=== PATIENT | female | born 1940 | race Caucasian/White ===

== ENCOUNTER 2021-02-13 13:22 | Inpatient (IN) | payer MEDICARE, OTHER ==
[~2021-02-13] VITALS: Ht 165.1 cm; Wt 88.2 kg
[2021-02-13 13:26] VITALS: BP 109/47
[2021-02-13] MEDS ORDERED: DEXAMETHASONE2 MG PO (13:36)
[2021-02-13] MEDS ORDERED: BENAZEPRIL20 MG PO (13:37)
[2021-02-13] MEDS ORDERED: CRESTOR5 MG PO (13:37)
[2021-02-13] MEDS ORDERED: PANTOPRAZOLE SO40 MG PO (13:38)
[2021-02-13] MEDS ORDERED: CYCLOBENZAPRINE5 M3 PO (13:38)
[2021-02-13] MEDS ORDERED: VENLAFAXINE37.5 M1 PO (13:39)
[2021-02-13 13:50] LABS: BASO # 0.1 10*3/uL (0.0-0.1); BASO % 0.7 % (0.0-1.0); EOS # 0.1 10*3/uL (0.0-0.4); EOS % 0.9 % (1.0-4.0); HEMATOCRIT 36.7 % (37.0-47.0); LYMPH # 1.9 10*3/uL (1.3-4.4); LYMPH % 15.9 % (27.0-41.0); MEAN CELL VOLUME 97.3 fl (81.0-99.0); MEAN CORPUSCULAR HGB 30.5 pg (27.0-31.0); MEAN CORPUSCULAR HGB CONC 31.3 g/dl (33.0-37.0); MEAN PLATELET VOLUME 9.6 fl (9.6-12.3); MONO # 0.9 10*3/uL (0.1-1.0); MONO % 7.2 % (3.0-9.0); NEUT # 8.7 10*3/uL (2.3-7.9); NEUT % 73.9 % (47.0-73.0); PLATELET COUNT AUTOMATED 273 10*3/uL (130-400); RED BLOOD COUNT 3.77 10*6/uL (4.10-5.10); RED CELL DISTRI WIDTH 14.4 % (0-14.5); WHITE BLOOD COUNT 11.8 10*3/uL (4.8-10.8)
[2021-02-13 14:04] LABS: ALBUMIN 3.2 gm/dl (3.1-4.5); CREATININE 1.34 mg/dL (0.55-1.02); POTASSIUM 3.7 mmol/L (3.5-5.1); TOTAL PROTEIN 6.6 gm/dL (6.4-8.2)
[2021-02-13 15:56] VITALS: BP 112/53
[2021-02-13 15:58] LABS: BILIRUBIN Negative (Negative); BLOOD Negative (Negative); CLARITY Cloudy (Clear); COLOR Yellow (Yellow); GLUCOSE Negative (Negative); KETONE Negative (Negative); LEUKO ESTERASE 3+ (Negative); NITRITE Negative (Negative); PH 6.5 (4.5-8.0); UROBILINOGEN 0.2 E.U./dl (0.0-1.0)
[2021-02-13 16:11] LABS: BACTERIA 2+; RBC 0-2 rbc/hpf (0-2); WBC 41-50 wbc/hpf (0-5)
[2021-02-13 16:49] VITALS: BP 146/62
[2021-02-13 20:10] VITALS: BP 174/66
[2021-02-13 20:40] VITALS: BP 158/66
[2021-02-13 21:06] VITALS: BP 148/66
[2021-02-14] VITALS: BP 139/58
[2021-02-14 06:06] LABS: ALBUMIN 3.1 gm/dl (3.1-4.5); ALKALINE PHOSPHATASE 48 U/L (45-117); BUN 17 mg/dl (7-24); CHLORIDE 114 mmol/L (98-107); CHOLESTEROL 151 mg/dL (<200); CREATININE 0.96 mg/dL (0.55-1.02); FREE T4 1.08 ng/dl (0.76-1.46); LDL CHOLESTEROL 36 mg/dL (9-159); POTASSIUM 3.8 mmol/L (3.5-5.1); SGOT/AST 15 IU/L (3-35); SGPT/ALT 28 U/L (12-78); SODIUM 144 mmol/L (136-145); TOTAL PROTEIN 5.9 gm/dL (6.4-8.2); TRIGLYCERIDES 239 mg/dl (<150)
[2021-02-14 06:26] LABS: BASO # 0.1 10*3/uL (0.0-0.1); BASO % 0.8 % (0.0-1.0); EOS # 0.1 10*3/uL (0.0-0.4); EOS % 1.5 % (1.0-4.0); HEMATOCRIT 33.7 % (37.0-47.0); LYMPH # 1.9 10*3/uL (1.3-4.4); LYMPH % 22.4 % (27.0-41.0); MEAN CORPUSCULAR HGB 30.5 pg (27.0-31.0); MEAN CORPUSCULAR HGB CONC 31.2 g/dl (33.0-37.0); MEAN PLATELET VOLUME 9.6 fl (9.6-12.3); MONO # 0.7 10*3/uL (0.1-1.0); MONO % 7.7 % (3.0-9.0); NEUT # 5.6 10*3/uL (2.3-7.9); PLATELET COUNT AUTOMATED 247 10*3/uL (130-400); RED BLOOD COUNT 3.44 10*6/uL (4.10-5.10); RED CELL DISTRI WIDTH 14.7 % (0-14.5); WHITE BLOOD COUNT 8.6 10*3/uL (4.8-10.8)
[2021-02-14 08:00] VITALS: BP 157/66
[2021-02-14 08:39] LABS: VITAMIN D, 25-HYDROXY 40.9 ng/mL (30-100)
[2021-02-14 12:00] VITALS: BP 154/78
[2021-02-14 16:00] VITALS: BP 157/68
[2021-02-14 20:00] VITALS: BP 166/67
[2021-02-15] VITALS: BP 150/88
[2021-02-15 05:55] LABS: ALBUMIN 3.1 gm/dl (3.1-4.5); BUN 17 mg/dl (7-24); CHLORIDE 110 mmol/L (98-107); POTASSIUM 4.5 mmol/L (3.5-5.1); SODIUM 141 mmol/L (136-145)
[2021-02-15 06:00] LABS: ALKALINE PHOSPHATASE 63 U/L (45-117); CREATININE 0.92 mg/dL (0.55-1.02); SGOT/AST 15 IU/L (3-35); SGPT/ALT 27 U/L (12-78); TOTAL PROTEIN 6.2 gm/dL (6.4-8.2)
[2021-02-15 06:21] LABS: BASO % 0.3 % (0.0-1.0); EOS % 0.1 % (1.0-4.0); HEMATOCRIT 35.9 % (37.0-47.0); LYMPH # 1.1 10*3/uL (1.3-4.4); LYMPH % 10.6 % (27.0-41.0); MEAN CELL VOLUME 99.7 fl (81.0-99.0); MEAN CORPUSCULAR HGB 30.3 pg (27.0-31.0); MEAN CORPUSCULAR HGB CONC 30.4 g/dl (33.0-37.0); MEAN PLATELET VOLUME 9.8 fl (9.6-12.3); MONO # 0.8 10*3/uL (0.1-1.0); MONO % 7.3 % (3.0-9.0); NEUT # 8.6 10*3/uL (2.3-7.9); NEUT % 80.7 % (47.0-73.0); PLATELET COUNT AUTOMATED 248 10*3/uL (130-400); RED CELL DISTRI WIDTH 14.2 % (0-14.5); WHITE BLOOD COUNT 10.7 10*3/uL (4.8-10.8)
[2021-02-15 08:00] VITALS: BP 165/83
[2021-02-15 12:00] VITALS: BP 152/79
[2021-02-15 16:00] VITALS: BP 174/78
[2021-02-15 20:00] VITALS: BP 163/81
[2021-02-16] VITALS: BP 175/80
[2021-02-16 06:29] LABS: BASO % 0.2 % (0.0-1.0); HEMATOCRIT 33.6 % (37.0-47.0); MEAN CELL VOLUME 97.4 fl (81.0-99.0); MEAN CORPUSCULAR HGB CONC 31.8 g/dl (33.0-37.0); MEAN PLATELET VOLUME 9.9 fl (9.6-12.3); MONO # 0.8 10*3/uL (0.1-1.0); MONO % 6.1 % (3.0-9.0); NEUT # 10.8 10*3/uL (2.3-7.9); NEUT % 84.7 % (47.0-73.0); PLATELET COUNT AUTOMATED 270 10*3/uL (130-400); RED BLOOD COUNT 3.45 10*6/uL (4.10-5.10); RED CELL DISTRI WIDTH 14.6 % (0-14.5); WHITE BLOOD COUNT 12.8 10*3/uL (4.8-10.8)
[2021-02-16 06:30] LABS: BUN 22 mg/dl (7-24); CHLORIDE 106 mmol/L (98-107); CREATININE 0.81 mg/dL (0.55-1.02); POTASSIUM 4.6 mmol/L (3.5-5.1); SODIUM 139 mmol/L (136-145)
[2021-02-16 08:00] VITALS: BP 191/90
[2021-02-16 11:00] VITALS: BP 158/84
== END 2021-02-16 12:26 | disposition home health service (06) | DRG 640 ==
LOC: ED 13:22 → 5E 19:39 → EDHOLD 19:39 → 5E 20:39
PROVIDERS: Emergency Medicine; Internal Medicine; ADMIT Student in an Organized Health Care Education/Training Program; ATTEND Student in an Organized Health Care Education/Training Program
DX: E86.0 Dehydration (principal); N17.0 Acute kidney failure with tubular necrosis; N39.0 Urinary tract infection, site not specified; R55 Syncope and collapse; M54.2 Cervicalgia; R19.7 Diarrhea, unspecified; D72.829 Elevated white blood cell count, unspecified; D64.9 Anemia, unspecified; R73.9 Hyperglycemia, unspecified; R26.81 Unsteadiness on feet; N18.32 Chronic kidney disease, stage 3b; I12.9 Hypertensive chronic kidney disease with stage 1 through stage 4 chronic kidney disease, or unspecified chronic kidney disease; E78.5 Hyperlipidemia, unspecified; K21.9 Gastro-esophageal reflux disease without esophagitis; B96.20 Unspecified Escherichia coli [E. coli] as the cause of diseases classified elsewhere; B96.4 Proteus (mirabilis) (morganii) as the cause of diseases classified elsewhere; Z90.710 Acquired absence of both cervix and uterus; Z95.5 Presence of coronary angioplasty implant and graft; Z82.49 Family history of ischemic heart disease and other diseases of the circulatory system; Z79.899 Other long term (current) drug therapy

== ENCOUNTER 2021-04-06 13:12 | Inpatient (IN) | payer MEDICARE, OTHER ==
[~2021-04-06] VITALS: Ht 165.1 cm; Wt 91.3 kg
[~2021-04-06 13:12] MED LIST: BENAZEPRIL20 MG PO; CRESTOR5 MG PO; CYCLOBENZAPRINE5 M3 PO; DEXAMETHASONE2 MG PO; PANTOPRAZOLE SO40 MG PO; VENLAFAXINE37.5 M1 PO
[2021-04-06 13:25] VITALS: BP 143/77
[2021-04-06 14:51] LABS: ACT PARTIAL THROMBO TIME 20.1 SECONDS (20.0-32.1); ALBUMIN 3.3 gm/dl (3.1-4.5); ALKALINE PHOSPHATASE 54 U/L (45-117); BUN 32 mg/dl (7-24); CHLORIDE 104 mmol/L (98-107); CPK 32 U/L (26-192); CREATININE 1.39 mg/dL (0.55-1.02); INTERNATIONAL NORM RATIO 0.9 (2.0-3.5); LIPASE 137 U/L (73-393); POTASSIUM 4.6 mmol/L (3.5-5.1); SGOT/AST 21 IU/L (3-35); SGPT/ALT 30 U/L (12-78); SODIUM 136 mmol/L (136-145); TOTAL PROTEIN 6.9 gm/dL (6.4-8.2)
[2021-04-06 14:53] LABS: TROPONIN I < 0.015 ng/ml (<0.045)
[2021-04-06 15:28] LABS: HEMATOCRIT 42.8 % (37.0-47.0); MEAN CELL VOLUME 108.1 fl (81.0-99.0); MEAN CORPUSCULAR HGB 31.1 pg (27.0-31.0); MEAN CORPUSCULAR HGB CONC 28.7 g/dl (33.0-37.0); MEAN PLATELET VOLUME 9.7 fl (9.6-12.3); PLATELET COUNT AUTOMATED 198 10*3/uL (130-400); RED BLOOD COUNT 3.96 10*6/uL (4.10-5.10); RED CELL DISTRI WIDTH 14.3 % (0-14.5); WHITE BLOOD COUNT 16.5 10*3/uL (4.8-10.8)
[2021-04-06 16:02] LABS: PLATELET SUFFICIENCY NORMAL (NORMAL); TOTAL CELLS COUNTED 100 #CELLS
[2021-04-06 16:03] LABS: MICROCYTOSIS SLIGHT
[2021-04-07] VITALS: BP 126/54
[2021-04-07 00:36] LABS: BILIRUBIN Negative (Negative); BLOOD Negative (Negative); CLARITY Clear (Clear); COLOR Yellow (Yellow); GLUCOSE Negative (Negative); KETONE Negative (Negative); LEUKO ESTERASE Negative (Negative); NITRITE Negative (Negative); PH 5.5 (4.5-8.0); UROBILINOGEN 0.2 E.U./dl (0.0-1.0)
[2021-04-07 00:50] LABS: BACTERIA 1+
[2021-04-07 04:39] VITALS: BP 124/78
[2021-04-07 07:21] LABS: BASO % 0.3 % (0.0-1.0); EOS % 0.2 % (1.0-4.0); HEMATOCRIT 35.7 % (37.0-47.0); LYMPH # 1.4 10*3/uL (1.3-4.4); MEAN CORPUSCULAR HGB 31.1 pg (27.0-31.0); MEAN CORPUSCULAR HGB CONC 30.5 g/dl (33.0-37.0); MEAN PLATELET VOLUME 10.1 fl (9.6-12.3); MONO # 0.9 10*3/uL (0.1-1.0); MONO % 7.9 % (3.0-9.0); NEUT # 8.8 10*3/uL (2.3-7.9); PLATELET COUNT AUTOMATED 215 10*3/uL (130-400); RED CELL DISTRI WIDTH 14.5 % (0-14.5); WHITE BLOOD COUNT 11.3 10*3/uL (4.8-10.8)
[2021-04-07 07:28] LABS: POTASSIUM 4.7 mmol/L (3.5-5.1)
[2021-04-07] MEDS ORDERED: PREGABALIN100 MG PO (07:37)
[2021-04-07 07:56] LABS: CREATININE 1.48 mg/dL (0.55-1.02); FREE T4 0.83 ng/dl (0.76-1.46); THYROID STIM HORMONE (HS) 0.754 uIU/ml (0.358-4.75); TOTAL PROTEIN 6.3 gm/dL (6.4-8.2)
[2021-04-07 08:00] VITALS: BP 102/47; BP 128/49
[2021-04-07 12:00] VITALS: BP 102/47
[2021-04-07 19:50] VITALS: BP 154/66
[2021-04-07 20:00] VITALS: BP 154/66
[2021-04-08] VITALS: BP 143/72
[2021-04-08 07:15] LABS: BASO % 0.3 % (0.0-1.0); EOS % 0.2 % (1.0-4.0); HEMATOCRIT 36.4 % (37.0-47.0); LYMPH # 1.2 10*3/uL (1.3-4.4); LYMPH % 10.3 % (27.0-41.0); MEAN CELL VOLUME 100.3 fl (81.0-99.0); MEAN CORPUSCULAR HGB 30.6 pg (27.0-31.0); MEAN CORPUSCULAR HGB CONC 30.5 g/dl (33.0-37.0); MEAN PLATELET VOLUME 9.7 fl (9.6-12.3); MONO # 0.8 10*3/uL (0.1-1.0); MONO % 7.2 % (3.0-9.0); NEUT % 80.1 % (47.0-73.0); PLATELET COUNT AUTOMATED 227 10*3/uL (130-400); RED BLOOD COUNT 3.63 10*6/uL (4.10-5.10); RED CELL DISTRI WIDTH 14.6 % (0-14.5); WHITE BLOOD COUNT 11.2 10*3/uL (4.8-10.8)
[2021-04-08 07:29] LABS: CREATININE 1.36 mg/dL (0.55-1.02)
[2021-04-08 08:00] VITALS: BP 191/88
[2021-04-08 12:00] VITALS: BP 131/70
[2021-04-08 16:00] VITALS: BP 132/71; BP 161/60
[2021-04-08 20:00] VITALS: BP 120/60
[2021-04-09] VITALS: BP 160/74
[2021-04-09 07:12] LABS: CREATININE 1.18 mg/dL (0.55-1.02); POTASSIUM 4.8 mmol/L (3.5-5.1)
[2021-04-09 08:00] VITALS: BP 131/73
[2021-04-09 12:00] VITALS: BP 116/69
[2021-04-09] MEDS ORDERED: HYDROCODONE-AC1 EAC1 PO (12:01)
== END 2021-04-09 16:25 | DRG 552 ==
LOC: ED 13:12 → EDHOLD 18:24 → 4E 18:24 → EDHOLD 22:31 → 4E 04-07 19:02
PROVIDERS: Emergency Medicine; Internal Medicine; ADMIT Family Medicine; ATTEND Family Medicine
DX: M54.6 Pain in thoracic spine (principal); E86.0 Dehydration; Z20.822 Contact with and (suspected) exposure to COVID-19; R26.2 Difficulty in walking, not elsewhere classified; R73.9 Hyperglycemia, unspecified; E83.41 Hypermagnesemia; N18.30 Chronic kidney disease, stage 3 unspecified; K21.9 Gastro-esophageal reflux disease without esophagitis; I25.2 Old myocardial infarction; I12.9 Hypertensive chronic kidney disease with stage 1 through stage 4 chronic kidney disease, or unspecified chronic kidney disease; Z90.49 Acquired absence of other specified parts of digestive tract; Z95.5 Presence of coronary angioplasty implant and graft; Z90.710 Acquired absence of both cervix and uterus; Z82.49 Family history of ischemic heart disease and other diseases of the circulatory system; Z79.899 Other long term (current) drug therapy; Z68.33 Body mass index [BMI] 33.0-33.9, adult

== ENCOUNTER 2021-06-03 09:31 | Emergency (ER) | payer MEDICARE, OTHER ==
[~2021-06-03 09:31] MED LIST changes: +HYDROCODONE-AC1 EAC1 PO; +PREGABALIN100 MG PO
[2021-06-03 10:00] LABS: BILIRUBIN Negative (Negative); BLOOD Negative (Negative); CLARITY Clear (Clear); COLOR Yellow (Yellow); GLUCOSE Negative (Negative); KETONE Negative (Negative); LEUKO ESTERASE Negative (Negative); NITRITE Negative (Negative); UROBILINOGEN 0.2 E.U./dl (0.0-1.0)
[2021-06-03 10:13] LABS: BASO # 0.1 10*3/uL (0.0-0.1); BASO % 0.3 % (0.0-1.0); EOS % 0.1 % (1.0-4.0); HEMATOCRIT 36.5 % (37.0-47.0); LYMPH # 0.7 10*3/uL (1.3-4.4); LYMPH % 4.3 % (27.0-41.0); MEAN CELL VOLUME 97.9 fl (81.0-99.0); MEAN CORPUSCULAR HGB CONC 30.7 g/dl (33.0-37.0); MEAN PLATELET VOLUME 9.6 fl (9.6-12.3); MONO # 0.8 10*3/uL (0.1-1.0); MONO % 4.5 % (3.0-9.0); NEUT # 15.6 10*3/uL (2.3-7.9); NEUT % 89.5 % (47.0-73.0); PLATELET COUNT AUTOMATED 283 10*3/uL (130-400); RED BLOOD COUNT 3.73 10*6/uL (4.10-5.10); RED CELL DISTRI WIDTH 14.6 % (0-14.5); WHITE BLOOD COUNT 17.4 10*3/uL (4.8-10.8)
[2021-06-03 10:23] LABS: ACT PARTIAL THROMBO TIME 28.5 SECONDS (20.0-32.1)
[2021-06-03 10:24] LABS: RBC 0-2 rbc/hpf (0-2)
[2021-06-03 10:25] LABS: ALBUMIN 2.7 gm/dl (3.1-4.5); CREATININE 1.29 mg/dL (0.55-1.02); POTASSIUM 3.8 mmol/L (3.5-5.1); TOTAL PROTEIN 6.5 gm/dL (6.4-8.2)
[2021-06-03 11:58] LABS: URINE AMPHETAMINES < 1000 (1000ng/ml); URINE BARBITURATES < 200 (200ng/ml); URINE BENZODIAZEPINES < 200 (200ng/ml); URINE CANNABINOIDS (THC) < 50 (50ng/ml); URINE COCAINE < 300 (300ng/ml); URINE METHADONE < 300 (300ng/ml); URINE OPIATES > 300 (300ng/ml); URINE PHENCYCLIDINE < 25 (25ng/ml)
== END 2021-06-03 13:28 | disposition home or self-care (01) ==
LOC: ED 09:31
PROVIDERS: Emergency Medicine
DX: F32.9 Major depressive disorder, single episode, unspecified (principal); R41.0 Disorientation, unspecified; K21.9 Gastro-esophageal reflux disease without esophagitis; I25.2 Old myocardial infarction; I12.9 Hypertensive chronic kidney disease with stage 1 through stage 4 chronic kidney disease, or unspecified chronic kidney disease; N18.9 Chronic kidney disease, unspecified; F17.200 Nicotine dependence, unspecified, uncomplicated; Z91.030 Bee allergy status; Z79.899 Other long term (current) drug therapy

== ENCOUNTER 2021-06-04 01:15 | Emergency (ER) | payer MEDICARE, OTHER ==
[~2021-06-04] VITALS: Wt 87.7 kg
[2021-06-04 03:22] LABS: BASO # 0.1 10*3/uL (0.0-0.1); BASO % 0.3 % (0.0-1.0); EOS # 0.1 10*3/uL (0.0-0.4); EOS % 0.6 % (1.0-4.0); HEMATOCRIT 36.4 % (37.0-47.0); LYMPH # 0.7 10*3/uL (1.3-4.4); LYMPH % 4.3 % (27.0-41.0); MEAN CELL VOLUME 98.1 fl (81.0-99.0); MEAN CORPUSCULAR HGB 30.2 pg (27.0-31.0); MEAN CORPUSCULAR HGB CONC 30.8 g/dl (33.0-37.0); MEAN PLATELET VOLUME 9.4 fl (9.6-12.3); MONO # 0.8 10*3/uL (0.1-1.0); MONO % 5.4 % (3.0-9.0); NEUT # 13.8 10*3/uL (2.3-7.9); NEUT % 87.6 % (47.0-73.0); PLATELET COUNT AUTOMATED 270 10*3/uL (130-400); RED BLOOD COUNT 3.71 10*6/uL (4.10-5.10); RED CELL DISTRI WIDTH 14.6 % (0-14.5); WHITE BLOOD COUNT 15.7 10*3/uL (4.8-10.8)
[2021-06-04 03:37] LABS: ALBUMIN 2.5 gm/dl (3.1-4.5); CREATININE 1.33 mg/dL (0.55-1.02); TOTAL PROTEIN 6.2 gm/dL (6.4-8.2)
== END 2021-06-04 06:32 | disposition home or self-care (01) ==
LOC: ED 01:15
PROVIDERS: Emergency Medicine
DX: R41.0 Disorientation, unspecified (principal); I25.2 Old myocardial infarction; K21.9 Gastro-esophageal reflux disease without esophagitis; I12.9 Hypertensive chronic kidney disease with stage 1 through stage 4 chronic kidney disease, or unspecified chronic kidney disease; N18.9 Chronic kidney disease, unspecified; Z79.899 Other long term (current) drug therapy; Z91.030 Bee allergy status

== ENCOUNTER 2021-06-16 11:20 | Emergency (ER) | payer MEDICARE, OTHER ==
[~2021-06-16] VITALS: Ht 162.5 cm; Wt 83.9 kg
[2021-06-16 11:54] LABS: HEMATOCRIT 34.7 % (37.0-47.0); MEAN CELL VOLUME 98.3 fl (81.0-99.0); MEAN CORPUSCULAR HGB CONC 30.5 g/dl (33.0-37.0); MEAN PLATELET VOLUME 9.7 fl (9.6-12.3); PLATELET COUNT AUTOMATED 298 10*3/uL (130-400); RED BLOOD COUNT 3.53 10*6/uL (4.10-5.10); RED CELL DISTRI WIDTH 15.1 % (0-14.5); WHITE BLOOD COUNT 17.8 10*3/uL (4.8-10.8)
[2021-06-16 12:10] LABS: ALBUMIN 2.8 gm/dl (3.1-4.5); CREATININE 1.75 mg/dL (0.55-1.02); TOTAL PROTEIN 6.3 gm/dL (6.4-8.2)
[2021-06-16 12:14] LABS: BASOPHILS 1 % (0-1); PLATELET SUFFICIENCY NORMAL (NORMAL); POLYCHROMASIA SLIGHT; TOTAL CELLS COUNTED 100 #CELLS; VACUOLATION OF NEUTROPHILS SLIGHT
[2021-06-16 14:55] LABS: BILIRUBIN Negative (Negative); BLOOD Trace-Lysed (Negative); CLARITY Cloudy (Clear); COLOR Yellow (Yellow); GLUCOSE Negative (Negative); KETONE Trace (Negative); LEUKO ESTERASE 2+ (Negative); NITRITE Positive (Negative); UROBILINOGEN 0.2 E.U./dl (0.0-1.0)
[2021-06-16 15:04] LABS: BACTERIA 2+; WBC TNTC wbc/hpf (0-5)
[2021-06-16] MEDS ORDERED: SEPTDS PO ×2 (15:17→15:19)
== END 2021-06-16 16:07 | disposition home or self-care (01) ==
LOC: ED 11:20
PROVIDERS: Internal Medicine
DX: N39.0 Urinary tract infection, site not specified (principal); R56.9 Unspecified convulsions

== ENCOUNTER 2021-12-04 11:29 | Emergency (ER) | payer MEDICARE, OTHER ==
[~2021-12-04 11:29] MED LIST changes: +BENZONATATE100 M1 PO; +BUDESONIDE0.25 MG/2 NEB; +COLACE100 MG PO; +FUROSEMIDE20 M1 PO; +LASIX40 MG PO; +PERCOCET 5-3251 EACH PO; +PREDNISONE10 MG PO; +SEPTDS PO; +TEFLARO600 MG IV; +VENTOLIN 02.5 MG/3 M NEB
[2021-12-04] MEDS ORDERED: PEPCID20 MG PO (13:05)
[2021-12-04] MEDS ORDERED: NEXIUM40 MG PO (13:05)
[2021-12-11] MEDS ORDERED: LIDODERM1 EACH T (16:27)
[2021-12-11] MEDS ORDERED: PREDNISONE10 MG PO (16:28)
[2021-12-11] MEDS ORDERED: CEPHALEXIN500 M1 PO (17:12)
== END 2021-12-04 15:03 | disposition home or self-care (01) ==
LOC: ED 11:29
DX: K21.9 Gastro-esophageal reflux disease without esophagitis (principal)

== ENCOUNTER 2021-12-09 15:48 | Emergency (ER) | payer MEDICARE, OTHER ==
[~2021-12-09 15:48] MED LIST changes: +NEXIUM40 MG PO; +PEPCID20 MG PO
[2021-12-09 16:57] LABS: BASO # 0.1 10*3/uL (0.0-0.1); BASO % 0.8 % (0.0-1.0); EOS # 0.1 10*3/uL (0.0-0.4); EOS % 1.9 % (1.0-4.0); HEMATOCRIT 28.8 % (37.0-47.0); LYMPH # 0.9 10*3/uL (1.3-4.4); LYMPH % 13.2 % (27.0-41.0); MEAN CELL VOLUME 93.8 fl (81.0-99.0); MEAN CORPUSCULAR HGB CONC 30.9 g/dl (33.0-37.0); MEAN PLATELET VOLUME 10.2 fl (9.6-12.3); MONO # 0.7 10*3/uL (0.1-1.0); MONO % 11.2 % (3.0-9.0); NEUT # 4.7 10*3/uL (2.3-7.9); NEUT % 72.4 % (47.0-73.0); PLATELET COUNT AUTOMATED 329 10*3/uL (130-400); RED BLOOD COUNT 3.07 10*6/uL (4.10-5.10); RED CELL DISTRI WIDTH 16.3 % (0-14.5); WHITE BLOOD COUNT 6.4 10*3/uL (4.8-10.8)
[2021-12-09 17:13] LABS: CREATININE 1.1 mg/dL (0.55-1.02); POTASSIUM 3.3 mmol/L (3.5-5.1); TOTAL PROTEIN 5.3 gm/dL (6.4-8.2)
[2021-12-09 17:15] LABS: ACT PARTIAL THROMBO TIME 29.3 SECONDS (20.0-32.1)
[2021-12-09 17:49] LABS: BILIRUBIN Negative (Negative); BLOOD Negative (Negative); CLARITY Clear (Clear); COLOR Yellow (Yellow); GLUCOSE Negative (Negative); KETONE Negative (Negative); LEUKO ESTERASE Negative (Negative); NITRITE Negative (Negative); PH 5.5 (4.5-8.0); SPECIFIC GRAVITY 1.015 (1.001-1.030); UROBILINOGEN 0.2 E.U./dl (0.0-1.0)
[2021-12-09 18:11] LABS: HYALINE CAST TNTC
[2021-12-11] MEDS ORDERED: LIDODERM1 EACH T (16:27)
[2021-12-11] MEDS ORDERED: PREDNISONE10 MG PO (16:28)
[2021-12-11] MEDS ORDERED: CEPHALEXIN500 M1 PO (17:12)
== END 2021-12-09 23:43 ==
LOC: ED 15:48
PROVIDERS: Emergency Medicine
DX: M54.9 Dorsalgia, unspecified (principal)

== ENCOUNTER 2022-02-04 10:44 | Inpatient (IN) | payer MEDICARE, OTHER ==
[~2022-02-04] VITALS: Ht 165.1 cm; Wt 74.5 kg
[~2022-02-04 10:44] MED LIST changes: +BUSPAR5 MG PO; +CEPHALEXIN500 M1 PO; +CLARITIN10 MG PO; +FLONASE ALLERG9.9 ML NAS; +LIDODERM1 EACH T; +PREDNISONE10 M1 PO; +Percocet 325 MG1 TAB PO; +ULTRAM50 MG PO
[2022-02-04 10:51] VITALS: BP 149/72
[2022-02-04 11:18] LABS: BILIRUBIN Negative (Negative); BLOOD Negative (Negative); CLARITY Cloudy (Clear); COLOR Yellow (Yellow); GLUCOSE Negative (Negative); KETONE Trace (Negative); LEUKO ESTERASE 2+ (Negative); NITRITE Positive (Negative); PH 5.5 (4.5-8.0); UROBILINOGEN 0.2 E.U./dl (0.0-1.0)
[2022-02-04 11:30] LABS: BASO # 0.1 10*3/uL (0.0-0.1); BASO % 0.8 % (0.0-1.0); EOS # 0.1 10*3/uL (0.0-0.4); EOS % 1.4 % (1.0-4.0); HEMATOCRIT 35.8 % (37.0-47.0); LYMPH # 1.1 10*3/uL (1.3-4.4); LYMPH % 11.7 % (27.0-41.0); MEAN CELL VOLUME 92.7 fl (81.0-99.0); MEAN CORPUSCULAR HGB CONC 31.3 g/dl (33.0-37.0); MEAN PLATELET VOLUME 9.8 fl (9.6-12.3); MONO # 0.6 10*3/uL (0.1-1.0); MONO % 6.8 % (3.0-9.0); NEUT # 7.4 10*3/uL (2.3-7.9); NEUT % 79.1 % (47.0-73.0); PLATELET COUNT AUTOMATED 367 10*3/uL (130-400); RED BLOOD COUNT 3.86 10*6/uL (4.10-5.10); RED CELL DISTRI WIDTH 16.4 % (0-14.5); WHITE BLOOD COUNT 9.3 10*3/uL (4.8-10.8)
[2022-02-04 11:37] LABS: ACT PARTIAL THROMBO TIME 25.4 SECONDS (20.0-32.1); INTERNATIONAL NORM RATIO 0.9 (2.0-3.5)
[2022-02-04 11:42] LABS: WBC 41-50 wbc/hpf (0-5)
[2022-02-04 11:43] LABS: BACTERIA 3+; EPITHELIAL CELLS 51-100
[2022-02-04 11:46] LABS: CHLORIDE 112 mmol/L (98-107)
[2022-02-04 12:39] LABS: ALKALINE PHOSPHATASE 76 U/L (45-117); BUN 11 mg/dl (7-24); LIPASE 104 U/L (73-393); POTASSIUM 4.2 mmol/L (3.5-5.1); SGOT/AST 15 IU/L (3-35); SGPT/ALT 10 U/L (12-78); SODIUM 143 mmol/L (136-145); TOTAL PROTEIN 5.3 gm/dL (6.4-8.2)
[2022-02-04 15:00] VITALS: BP 138/67
[2022-02-04] MEDS ORDERED: FEROSUL325 MG PO (17:47)
[2022-02-04] MEDS ORDERED: EFFEXOR XR75 M1 PO (17:51)
[2022-02-04 20:00] VITALS: BP 131/73
[2022-02-05] VITALS: BP 141/82
[2022-02-05 06:18] LABS: BUN 10 mg/dl (7-24); CHLORIDE 115 mmol/L (98-107); CREATININE 0.82 mg/dL (0.55-1.02); POTASSIUM 3.6 mmol/L (3.5-5.1); SGOT/AST 16 IU/L (3-35); SGPT/ALT 8 U/L (12-78); SODIUM 143 mmol/L (136-145)
[2022-02-05 06:19] LABS: ALKALINE PHOSPHATASE 71 U/L (45-117); TOTAL PROTEIN 5.2 gm/dL (6.4-8.2)
[2022-02-05 07:39] LABS: BASO # 0.1 10*3/uL (0.0-0.1); BASO % 0.6 % (0.0-1.0); EOS # 0.1 10*3/uL (0.0-0.4); EOS % 1.2 % (1.0-4.0); HEMATOCRIT 32.6 % (37.0-47.0); LYMPH # 0.9 10*3/uL (1.3-4.4); LYMPH % 8.9 % (27.0-41.0); MEAN CELL VOLUME 94.5 fl (81.0-99.0); MEAN CORPUSCULAR HGB 29.6 pg (27.0-31.0); MEAN CORPUSCULAR HGB CONC 31.3 g/dl (33.0-37.0); MONO # 0.9 10*3/uL (0.1-1.0); MONO % 8.8 % (3.0-9.0); NEUT # 7.8 10*3/uL (2.3-7.9); NEUT % 80.1 % (47.0-73.0); PLATELET COUNT AUTOMATED 346 10*3/uL (130-400); RED BLOOD COUNT 3.45 10*6/uL (4.10-5.10); RED CELL DISTRI WIDTH 16.6 % (0-14.5); WHITE BLOOD COUNT 9.8 10*3/uL (4.8-10.8)
[2022-02-05 08:00] VITALS: BP 158/88
[2022-02-05 12:00] VITALS: BP 135/65
[2022-02-05 16:00] VITALS: BP 150/82
[2022-02-05 20:00] VITALS: BP 124/59
[2022-02-06] VITALS: BP 112/57
[2022-02-06 06:54] LABS: BASO # 0.1 10*3/uL (0.0-0.1); BASO % 0.6 % (0.0-1.0); EOS # 0.4 10*3/uL (0.0-0.4); EOS % 4.5 % (1.0-4.0); HEMATOCRIT 32.1 % (37.0-47.0); LYMPH # 1.2 10*3/uL (1.3-4.4); LYMPH % 14.9 % (27.0-41.0); MEAN CORPUSCULAR HGB CONC 29.9 g/dl (33.0-37.0); MONO # 0.8 10*3/uL (0.1-1.0); MONO % 9.6 % (3.0-9.0); NEUT # 5.6 10*3/uL (2.3-7.9); PLATELET COUNT AUTOMATED 304 10*3/uL (130-400); RED BLOOD COUNT 3.31 10*6/uL (4.10-5.10); RED CELL DISTRI WIDTH 16.6 % (0-14.5); WHITE BLOOD COUNT 7.9 10*3/uL (4.8-10.8)
[2022-02-06 07:11] LABS: BUN 10 mg/dl (7-24); CHLORIDE 115 mmol/L (98-107); CREATININE 0.88 mg/dL (0.55-1.02); POTASSIUM 3.1 mmol/L (3.5-5.1); SODIUM 145 mmol/L (136-145)
[2022-02-06 08:00] VITALS: BP 157/80
[2022-02-06 12:00] VITALS: BP 149/71
[2022-02-06 16:00] VITALS: BP 116/69
[2022-02-06 20:00] VITALS: BP 121/62
[2022-02-07] VITALS: BP 132/60
[2022-02-07 03:59] LABS: BASO # 0.1 10*3/uL (0.0-0.1); BASO % 0.8 % (0.0-1.0); EOS # 0.4 10*3/uL (0.0-0.4); EOS % 5.4 % (1.0-4.0); HEMATOCRIT 28.6 % (37.0-47.0); LYMPH % 12.5 % (27.0-41.0); MEAN CORPUSCULAR HGB 29.4 pg (27.0-31.0); MEAN CORPUSCULAR HGB CONC 29.7 g/dl (33.0-37.0); MONO # 0.8 10*3/uL (0.1-1.0); MONO % 9.9 % (3.0-9.0); NEUT # 5.4 10*3/uL (2.3-7.9); PLATELET COUNT AUTOMATED 278 10*3/uL (130-400); RED BLOOD COUNT 2.89 10*6/uL (4.10-5.10); RED CELL DISTRI WIDTH 16.9 % (0-14.5); WHITE BLOOD COUNT 7.6 10*3/uL (4.8-10.8)
[2022-02-07 04:12] LABS: BUN 8 mg/dl (7-24); CHLORIDE 118 mmol/L (98-107); CREATININE 0.81 mg/dL (0.55-1.02); POTASSIUM 3.2 mmol/L (3.5-5.1); SODIUM 144 mmol/L (136-145)
[2022-02-07 08:00] VITALS: BP 145/77
[2022-02-07 12:00] VITALS: BP 145/74
[2022-02-07 16:00] VITALS: BP 151/78
[2022-02-07 20:00] VITALS: BP 136/56
[2022-02-08] VITALS: BP 142/63
[2022-02-08 04:09] LABS: BASO # 0.1 10*3/uL (0.0-0.1); BASO % 0.8 % (0.0-1.0); EOS # 0.3 10*3/uL (0.0-0.4); EOS % 4.2 % (1.0-4.0); HEMATOCRIT 29.2 % (37.0-47.0); LYMPH # 1.2 10*3/uL (1.3-4.4); LYMPH % 16.5 % (27.0-41.0); MEAN CORPUSCULAR HGB 29.1 pg (27.0-31.0); MEAN CORPUSCULAR HGB CONC 30.5 g/dl (33.0-37.0); MEAN PLATELET VOLUME 10.1 fl (9.6-12.3); MONO # 0.7 10*3/uL (0.1-1.0); MONO % 9.9 % (3.0-9.0); NEUT # 4.9 10*3/uL (2.3-7.9); NEUT % 68.2 % (47.0-73.0); PLATELET COUNT AUTOMATED 298 10*3/uL (130-400); RED BLOOD COUNT 3.06 10*6/uL (4.10-5.10); WHITE BLOOD COUNT 7.2 10*3/uL (4.8-10.8)
[2022-02-08 04:13] LABS: MEAN CELL VOLUME 95.4 fl (81.0-99.0)
[2022-02-08 04:24] LABS: BUN 4 mg/dl (7-24); CHLORIDE 117 mmol/L (98-107); CREATININE 0.67 mg/dL (0.55-1.02); POTASSIUM 3.5 mmol/L (3.5-5.1); SODIUM 143 mmol/L (136-145)
[2022-02-08 08:00] VITALS: BP 107/52; BP 142/58
[2022-02-08 12:00] VITALS: BP 111/58; BP 146/54
[2022-02-08 16:00] VITALS: BP 142/71
[2022-02-08 20:00] VITALS: BP 118/81
[2022-02-09] VITALS: BP 136/52
[2022-02-09 05:41] LABS: BUN 3 mg/dl (7-24); CHLORIDE 115 mmol/L (98-107); CREATININE 0.73 mg/dL (0.55-1.02); POTASSIUM 3.2 mmol/L (3.5-5.1); SODIUM 142 mmol/L (136-145)
[2022-02-09 06:47] LABS: BASO # 0.1 10*3/uL (0.0-0.1); BASO % 0.9 % (0.0-1.0); EOS # 0.4 10*3/uL (0.0-0.4); EOS % 4.6 % (1.0-4.0); HEMATOCRIT 29.4 % (37.0-47.0); LYMPH # 1.2 10*3/uL (1.3-4.4); LYMPH % 15.5 % (27.0-41.0); MEAN CORPUSCULAR HGB 29.1 pg (27.0-31.0); MEAN CORPUSCULAR HGB CONC 31.3 g/dl (33.0-37.0); MEAN PLATELET VOLUME 10.4 fl (9.6-12.3); MONO # 0.8 10*3/uL (0.1-1.0); MONO % 10.8 % (3.0-9.0); NEUT # 5.1 10*3/uL (2.3-7.9); NEUT % 67.7 % (47.0-73.0); PLATELET COUNT AUTOMATED 328 10*3/uL (130-400); RED BLOOD COUNT 3.16 10*6/uL (4.10-5.10); WHITE BLOOD COUNT 7.6 10*3/uL (4.8-10.8)
[2022-02-09 08:00] VITALS: BP 112/80
[2022-02-09 12:00] VITALS: BP 150/82
[2022-02-09 16:00] VITALS: BP 137/90
[2022-02-09 20:00] VITALS: BP 104/48
[2022-02-10] VITALS: BP 122/84
[2022-02-10 06:50] LABS: BASO # 0.1 10*3/uL (0.0-0.1); BASO % 0.6 % (0.0-1.0); EOS # 0.3 10*3/uL (0.0-0.4); EOS % 2.9 % (1.0-4.0); HEMATOCRIT 26.8 % (37.0-47.0); LYMPH # 1.1 10*3/uL (1.3-4.4); LYMPH % 12.2 % (27.0-41.0); MEAN CELL VOLUME 95.7 fl (81.0-99.0); MEAN CORPUSCULAR HGB 29.3 pg (27.0-31.0); MEAN CORPUSCULAR HGB CONC 30.6 g/dl (33.0-37.0); MEAN PLATELET VOLUME 10.2 fl (9.6-12.3); MONO # 1.1 10*3/uL (0.1-1.0); MONO % 12.6 % (3.0-9.0); NEUT # 6.3 10*3/uL (2.3-7.9); PLATELET COUNT AUTOMATED 304 10*3/uL (130-400); RED CELL DISTRI WIDTH 17.6 % (0-14.5); WHITE BLOOD COUNT 8.9 10*3/uL (4.8-10.8)
[2022-02-10 07:08] LABS: ALKALINE PHOSPHATASE 79 U/L (45-117); BUN 3 mg/dl (7-24); CHLORIDE 114 mmol/L (98-107); POTASSIUM 3.8 mmol/L (3.5-5.1); SGOT/AST 20 IU/L (3-35); SGPT/ALT 11 U/L (12-78); SODIUM 143 mmol/L (136-145); TOTAL PROTEIN 4.5 gm/dL (6.4-8.2)
[2022-02-10 08:00] VITALS: BP 114/50
[2022-02-10 12:00] VITALS: BP 126/50
[2022-02-10 16:00] VITALS: BP 115/54
[2022-02-10 20:00] VITALS: BP 116/50
[2022-02-11] VITALS: BP 108/50
[2022-02-11 07:33] LABS: CREATININE 1.1 mg/dL (0.55-1.02); POTASSIUM 4.1 mmol/L (3.5-5.1); TOTAL PROTEIN 4.7 gm/dL (6.4-8.2)
[2022-02-11 08:00] VITALS: BP 117/46
[2022-02-11] MEDS ORDERED: Lopressor25 MG PO (11:08)
[2022-02-11] MEDS ORDERED: METRONIDAZOLE500 M1 PO (11:08)
[2022-02-11] MEDS ORDERED: CIPRO500 MG PO (11:08)
[2022-02-11] MEDS ORDERED: LASIX20 MG PO ×2 (11:08→12:53)
[2022-02-11] MEDS ORDERED: ZESTRIL5 MG PO (11:08)
[2022-02-11 12:00] VITALS: BP 107/43
[2022-02-11] MEDS ORDERED: ZESTRIL,PRINIVIL5 MG PO (12:52)
[2022-02-11] MEDS ORDERED: LOPRESSOR25 MG PO (12:54)
[2022-02-11] MEDS ORDERED: PROTONIX20 MG PO (12:58)
[2022-02-11] MEDS ORDERED: CIPROFLOXA400 MG/200 IV (13:00)
[2022-02-11] MEDS ORDERED: REMEDY CALAZIME4 GM T (13:04)
[2022-02-11] MEDS ORDERED: LIPITOR20 MG PO (13:12)
[2022-02-11] MEDS ORDERED: EFFEXOR XR75 M1 PO (13:14)
[2022-02-11] MEDS ORDERED: Lovenox40 MG/0.4 SC (13:15)
[2022-02-11] MEDS ORDERED: BUSPAR5 MG PO (13:15)
[2022-02-11] MEDS ORDERED: MOM30 M1 PO (13:19)
[2022-02-11] MEDS ORDERED: DULCOLAX10 M1 R (13:20)
[2022-02-11] MEDS ORDERED: DULCOLAX5 M1 PO (13:21)
[2022-02-11] MEDS ORDERED: TYLENOL325 M1 PO (13:22)
[2022-02-11] MEDS ORDERED: METRONIDAZ500 MG/100 IV (13:24)
[2022-02-11] MEDS ORDERED: ONDANSETRON4 MG/5 M2 IV (13:27)
[2022-02-11 16:00] VITALS: BP 110/45
== END 2022-02-11 17:44 | DRG 391 ==
LOC: ED 10:44 → EDHOLD 12:58 → ED 12:58 → 4E 12:58 → EDHOLD 14:37 → 4E 14:37 → 3N 02-11 11:37 → 4E 02-11 11:37 → 3N 02-11 11:49 → 4E 02-11 17:44
PROVIDERS: Emergency Medicine; Internal Medicine; Student in an Organized Health Care Education/Training Program; ADMIT Internal Medicine; ATTEND Internal Medicine
DX: K57.32 Diverticulitis of large intestine without perforation or abscess without bleeding (principal); E43 Unspecified severe protein-calorie malnutrition; N30.00 Acute cystitis without hematuria; J90 Pleural effusion, not elsewhere classified; I13.0 Hypertensive heart and chronic kidney disease with heart failure and stage 1 through stage 4 chronic kidney disease, or unspecified chronic kidney disease; R00.0 Tachycardia, unspecified; D64.9 Anemia, unspecified; E87.8 Other disorders of electrolyte and fluid balance, not elsewhere classified; E78.1 Pure hyperglyceridemia; Z20.822 Contact with and (suspected) exposure to COVID-19; K21.9 Gastro-esophageal reflux disease without esophagitis; F03.90 Unspecified dementia, unspecified severity, without behavioral disturbance, psychotic disturbance, mood disturbance, and anxiety; F32.9 Major depressive disorder, single episode, unspecified; E87.6 Hypokalemia; N18.9 Chronic kidney disease, unspecified; F41.1 Generalized anxiety disorder; I50.9 Heart failure, unspecified; I25.2 Old myocardial infarction; Z95.5 Presence of coronary angioplasty implant and graft; Z87.01 Personal history of pneumonia (recurrent); Z86.14 Personal history of Methicillin resistant Staphylococcus aureus infection; Z79.899 Other long term (current) drug therapy; Z68.27 Body mass index [BMI] 27.0-27.9, adult

== ENCOUNTER 2022-02-27 00:39 | Inpatient (IN) | payer MEDICARE, OTHER ==
[~2022-02-27] VITALS: Ht 165.1 cm; Wt 74.4 kg
[~2022-02-27 00:39] MED LIST changes: +CIPRO500 MG PO; +CIPROFLOXA400 MG/200 IV; +DULCOLAX10 M1 R; +DULCOLAX5 M1 PO; +EFFEXOR XR75 M1 PO; +FEROSUL325 MG PO; +LASIX20 MG PO; +LIPITOR20 MG PO; +LOPRESSOR25 MG PO; +Lopressor25 MG PO; +Lovenox40 MG/0.4 SC; +METRONIDAZ500 MG/100 IV; +METRONIDAZOLE500 M1 PO; +MOM30 M1 PO; +ONDANSETRON4 MG/5 M2 IV; +PAIN RELIEVER500 MG PO; +PROTONIX20 MG PO; +REMEDY CALAZIME4 GM T; +ZESTRIL,PRINIVIL5 MG PO; +ZESTRIL5 MG PO
[2022-02-27 00:43] VITALS: BP 154/70
[2022-02-27 01:09] LABS: BASO % 0.4 % (0.0-1.0); EOS % 0.1 % (1.0-4.0); LYMPH # 0.6 10*3/uL (1.3-4.4); LYMPH % 5.6 % (27.0-41.0); MEAN CELL VOLUME 92.6 fl (81.0-99.0); MEAN CORPUSCULAR HGB 29.2 pg (27.0-31.0); MEAN CORPUSCULAR HGB CONC 31.5 g/dl (33.0-37.0); MEAN PLATELET VOLUME 10.4 fl (9.6-12.3); MONO # 0.9 10*3/uL (0.1-1.0); MONO % 7.7 % (3.0-9.0); NEUT # 9.5 10*3/uL (2.3-7.9); NEUT % 85.9 % (47.0-73.0); PLATELET COUNT AUTOMATED 317 10*3/uL (130-400); RED BLOOD COUNT 3.67 10*6/uL (4.10-5.10)
[2022-02-27 01:34] LABS: ALKALINE PHOSPHATASE 57 U/L (45-117); BUN 12 mg/dl (7-24); CHLORIDE 105 mmol/L (98-107); CREATININE 0.89 mg/dL (0.55-1.02); POTASSIUM 3.1 mmol/L (3.5-5.1); SGOT/AST 12 IU/L (3-35); SGPT/ALT 7 U/L (12-78); SODIUM 142 mmol/L (136-145); TOTAL PROTEIN 5.5 gm/dL (6.4-8.2)
[2022-02-27 04:00] VITALS: BP 140/64
[2022-02-27 04:59] LABS: BILIRUBIN Negative (Negative); BLOOD Negative (Negative); CLARITY Cloudy (Clear); COLOR Yellow (Yellow); GLUCOSE Negative (Negative); KETONE Trace (Negative); LEUKO ESTERASE 2+ (Negative); NITRITE Negative (Negative); PH 5.5 (4.5-8.0)
[2022-02-27 05:08] LABS: WBC 31-40 wbc/hpf (0-5)
[2022-02-27 05:09] LABS: BACTERIA 3+
[2022-02-27 07:18] VITALS: BP 141/64
[2022-02-27 10:09] VITALS: BP 135/78
[2022-02-27 14:00] VITALS: BP 122/59
[2022-02-27] MEDS ORDERED: ALBUTEROL2.5 MG/0.5 INH (15:38)
[2022-02-27] MEDS ORDERED: CALCIUM500 M1 PO (15:39)
[2022-02-27] MEDS ORDERED: 24 HOUR ALLER15.8 ML NAS (15:43)
[2022-02-27] MEDS ORDERED: PERCOCET 5-3251 EACH PO (15:46)
[2022-02-27] MEDS ORDERED: VITAMIN D31250 MC1 PO (15:52)
[2022-02-27 20:00] VITALS: BP 113/61
[2022-02-28] VITALS (7 sets, daily range): BP systolic 94–140; BP diastolic 49–74
[2022-02-28 06:33] LABS: CREATININE 1.07 mg/dL (0.55-1.02); POTASSIUM 3.1 mmol/L (3.5-5.1); TOTAL PROTEIN 5.1 gm/dL (6.4-8.2)
[2022-02-28 06:53] LABS: HEMATOCRIT 33.5 % (37.0-47.0); MEAN CORPUSCULAR HGB 29.4 pg (27.0-31.0); MEAN CORPUSCULAR HGB CONC 30.4 g/dl (33.0-37.0); MEAN PLATELET VOLUME 11.3 fl (9.6-12.3); PLATELET COUNT AUTOMATED 287 10*3/uL (130-400); RED BLOOD COUNT 3.47 10*6/uL (4.10-5.10); RED CELL DISTRI WIDTH 17.2 % (0-14.5); WHITE BLOOD COUNT 6.9 10*3/uL (4.8-10.8)
[2022-02-28 06:56] LABS: MANUAL DIFF REFLEX YES; MEAN CELL VOLUME 96.5 fl (81.0-99.0)
[2022-02-28 07:35] LABS: ATYPICAL LYMPHS 1 % (0-0); BASOPHILS 1 % (0-1); POLYCHROMASIA SLIGHT; TOTAL CELLS COUNTED 100 #CELLS
[2022-02-28 07:36] LABS: BURR CELLS MODERATE; PLATELET SUFFICIENCY NORMAL (NORMAL); TARGET CELLS FEW
[2022-03-01] VITALS: BP 109/49
[2022-03-01 06:49] LABS: BASO % 0.5 % (0.0-1.0); EOS # 0.6 10*3/uL (0.0-0.4); EOS % 9.1 % (1.0-4.0); HEMATOCRIT 29.4 % (37.0-47.0); LYMPH # 0.8 10*3/uL (1.3-4.4); LYMPH % 12.3 % (27.0-41.0); MEAN CELL VOLUME 93.6 fl (81.0-99.0); MEAN PLATELET VOLUME 10.3 fl (9.6-12.3); MONO # 0.7 10*3/uL (0.1-1.0); NEUT # 4.2 10*3/uL (2.3-7.9); NEUT % 66.6 % (47.0-73.0); PLATELET COUNT AUTOMATED 265 10*3/uL (130-400); RED BLOOD COUNT 3.14 10*6/uL (4.10-5.10); RED CELL DISTRI WIDTH 16.7 % (0-14.5); WHITE BLOOD COUNT 6.3 10*3/uL (4.8-10.8)
[2022-03-01 07:03] LABS: CREATININE 1.22 mg/dL (0.55-1.02); POTASSIUM 2.7 mmol/L (3.5-5.1)
[2022-03-01 08:00] VITALS: BP 128/52; BP 152/80
[2022-03-01 12:00] VITALS: BP 123/50
[2022-03-01 16:00] VITALS: BP 114/54
[2022-03-01] MEDS ORDERED: AUGMENTIN 500500 M1 PO (18:55)
[2022-03-01 20:00] VITALS: BP 114/45
[2022-03-02] VITALS: BP 120/80
[2022-03-02 05:44] LABS: CREATININE 1.14 mg/dL (0.55-1.02); POTASSIUM 3.1 mmol/L (3.5-5.1)
[2022-03-02 08:00] VITALS: BP 120/85
[2022-03-02 12:00] VITALS: BP 142/60
[2022-03-02] MEDS ORDERED: K-TAB20 MEQ PO (13:48)
[2022-03-02] MEDS ORDERED: DELZICOL400 M2 PO (13:48)
[2022-03-02] MEDS ORDERED: PERCOCET 5-3251 EACH PO (13:48)
== END 2022-03-02 15:30 | DRG 393 ==
LOC: ED 00:39 → EDHOLD 05:31 → 5E 05:31
PROVIDERS: Emergency Medicine; Family Medicine; Internal Medicine; ADMIT Internal Medicine; ATTEND Internal Medicine
DX: K62.89 Other specified diseases of anus and rectum (principal); E43 Unspecified severe protein-calorie malnutrition; N39.0 Urinary tract infection, site not specified; K52.89 Other specified noninfective gastroenteritis and colitis; Z82.49 Family history of ischemic heart disease and other diseases of the circulatory system; K57.30 Diverticulosis of large intestine without perforation or abscess without bleeding; K21.9 Gastro-esophageal reflux disease without esophagitis; F32.9 Major depressive disorder, single episode, unspecified; I12.9 Hypertensive chronic kidney disease with stage 1 through stage 4 chronic kidney disease, or unspecified chronic kidney disease; E78.5 Hyperlipidemia, unspecified; E87.6 Hypokalemia; D64.9 Anemia, unspecified; R73.9 Hyperglycemia, unspecified; N18.31 Chronic kidney disease, stage 3a; E78.2 Mixed hyperlipidemia; Z20.822 Contact with and (suspected) exposure to COVID-19; Z90.710 Acquired absence of both cervix and uterus; S32.040D Wedge compression fracture of fourth lumbar vertebra, subsequent encounter for fracture with routine healing; Z95.5 Presence of coronary angioplasty implant and graft

== ENCOUNTER 2022-03-13 11:24 | Emergency (ER) | payer MEDICARE, OTHER ==
[~2022-03-13] VITALS: Wt 73.9 kg
[~2022-03-13 11:24] MED LIST changes: +24 HOUR ALLER15.8 ML NAS; +ALBUTEROL2.5 MG/0.5 INH; +AUGMENTIN 500500 M1 PO; +CALCIUM500 M1 PO; +DELZICOL400 M2 PO; +K-TAB20 MEQ PO; +VITAMIN D31250 MC1 PO
[2022-03-13 11:54] LABS: BASO # 0.1 10*3/uL (0.0-0.1); BASO % 0.4 % (0.0-1.0); EOS % 0.1 % (1.0-4.0); HEMATOCRIT 31.4 % (37.0-47.0); LYMPH # 1.3 10*3/uL (1.3-4.4); LYMPH % 8.2 % (27.0-41.0); MEAN CELL VOLUME 95.4 fl (81.0-99.0); MEAN CORPUSCULAR HGB 29.2 pg (27.0-31.0); MEAN CORPUSCULAR HGB CONC 30.6 g/dl (33.0-37.0); MEAN PLATELET VOLUME 10.4 fl (9.6-12.3); MONO # 1.2 10*3/uL (0.1-1.0); MONO % 7.7 % (3.0-9.0); NEUT # 13.5 10*3/uL (2.3-7.9); NEUT % 83.2 % (47.0-73.0); PLATELET COUNT AUTOMATED 296 10*3/uL (130-400); RED BLOOD COUNT 3.29 10*6/uL (4.10-5.10); RED CELL DISTRI WIDTH 16.9 % (0-14.5); WHITE BLOOD COUNT 16.2 10*3/uL (4.8-10.8)
[2022-03-13 12:21] LABS: CREATININE 1.2 mg/dL (0.55-1.02); POTASSIUM 4.4 mmol/L (3.5-5.1); TOTAL PROTEIN 5.2 gm/dL (6.4-8.2)
[2022-03-13 18:15] LABS: BILIRUBIN Negative (Negative); BLOOD Negative (Negative); CLARITY Clear (Clear); COLOR Yellow (Yellow); GLUCOSE Negative (Negative); KETONE Negative (Negative); LEUKO ESTERASE Trace (Negative); NITRITE Negative (Negative); UROBILINOGEN 0.2 E.U./dl (0.0-1.0)
[2022-03-13 18:25] LABS: BACTERIA 2+
[2022-03-13 18:26] LABS: YEAST 4+
== END 2022-03-13 18:38 ==
LOC: ED 11:24
PROVIDERS: Internal Medicine
DX: E43 Unspecified severe protein-calorie malnutrition (principal); R11.2 Nausea with vomiting, unspecified; Z91.030 Bee allergy status; Z79.899 Other long term (current) drug therapy; Z90.710 Acquired absence of both cervix and uterus; Z98.890 Other specified postprocedural states

== ENCOUNTER → 2022-06-24 | Outpatient (CLI) | payer MEDICARE, OTHER | END | disposition home or self-care (01) | LOC: RAD 09:30 | PROVIDERS: ATTEND Internal Medicine | DX: M85.852 Other specified disorders of bone density and structure, left thigh (principal) ==

== ENCOUNTER 2023-12-02 13:13 | Emergency (ER) | payer MEDICARE, OTHER ==
[~2023-12-02] VITALS: Ht 162.5 cm; Wt 91.7 kg
[2023-12-02] MEDS ORDERED: ADV 100/50 INH (13:30)
[2023-12-02] MEDS ORDERED: 'zithromax250 MG PO (13:31)
[2023-12-02] MEDS ORDERED: BUSPIRONE10 MG PO (13:32)
[2023-12-02] MEDS ORDERED: CYCLOBENZAPRINE10 MG PO (13:33)
[2023-12-02] MEDS ORDERED: MULTI-VITAMIN1 EACH PO (13:37)
[2023-12-02] MEDS ORDERED: ROBITUSSIN HON237 ML PO (13:41)
[2023-12-02] MEDS ORDERED: ROBITUSSIN-DM 110 ML PO (13:42)
[2023-12-02] MEDS ORDERED: Ondansetron4 MG PO (13:45)
[2023-12-02] MEDS ORDERED: VOLTAREN ARTHRI20 GM T (13:45)
[2023-12-02] MEDS ORDERED: ACETAMINOPHEN 325 MG TAB PO ONE (14:30)
[2023-12-02] MEDS ORDERED: OXYCODONE HCL (IR) 5 MG TAB PO ONE (14:30)
[2023-12-02] MEDS ORDERED: Ondansetron Hydrochloride 4 MG TAB PO ONE (15:00)
[2023-12-02] MEDS ORDERED: OXYCODONE5 M1 PO (17:53)
[2023-12-02] MEDS ORDERED: ONDANSETRON HYDR4 M1 PO (17:53)
== END 2023-12-02 20:44 | disposition home or self-care (01) ==
LOC: ED 13:13
DX: M54.9 Dorsalgia, unspecified (principal); M25.511 Pain in right shoulder; M54.2 Cervicalgia; M79.601 Pain in right arm; F03.90 Unspecified dementia, unspecified severity, without behavioral disturbance, psychotic disturbance, mood disturbance, and anxiety; K21.9 Gastro-esophageal reflux disease without esophagitis; E78.5 Hyperlipidemia, unspecified; I10 Essential (primary) hypertension; F41.9 Anxiety disorder, unspecified; D64.9 Anemia, unspecified; I25.2 Old myocardial infarction; I12.9 Hypertensive chronic kidney disease with stage 1 through stage 4 chronic kidney disease, or unspecified chronic kidney disease; N18.9 Chronic kidney disease, unspecified; E87.6 Hypokalemia; Z88.2 Allergy status to sulfonamides; Z91.030 Bee allergy status; Z90.710 Acquired absence of both cervix and uterus; Z98.890 Other specified postprocedural states

== ENCOUNTER 2024-01-08 08:29 | Inpatient (IN) | payer MEDICARE, OTHER ==
[~2024-01-08] VITALS: Ht 162.5 cm; Wt 88.9 kg
[2024-01-08 08:29] VITALS: BP 158/67
[~2024-01-08 08:29] MED LIST changes: +'zithromax250 MG PO; +ADV 100/50 INH; +BUSPIRONE10 MG PO; +CYCLOBENZAPRINE10 MG PO; +MULTI-VITAMIN1 EACH PO; +ONDANSETRON HYDR4 M1 PO; +OXYCODONE5 M1 PO; +Ondansetron4 MG PO; +ROBITUSSIN HON237 ML PO; +ROBITUSSIN-DM 110 ML PO; +VOLTAREN ARTHRI20 GM T
[2024-01-08] MEDS ORDERED: MORPHINE Sulfate 2 MG/ML SYR IV ONE (09:05)
[2024-01-08] MEDS ORDERED: Lactated Ringer's Solution 1,000 ML IV SCH (09:05)
[2024-01-08 09:32] LABS: BASO # 0.1 10*3/uL (0.0-0.1); BASO % 0.9 % (0.0-1.0); EOS # 0.2 10*3/uL (0.0-0.4); EOS % 2.9 % (1.0-4.0); HEMATOCRIT 36.2 % (37.0-47.0); LYMPH # 1.4 10*3/uL (1.3-4.4); LYMPH % 18.9 % (27.0-41.0); MEAN CELL VOLUME 97.6 fl (81.0-99.0); MEAN CORPUSCULAR HGB 29.9 pg (27.0-31.0); MEAN CORPUSCULAR HGB CONC 30.7 g/dl (33.0-37.0); MEAN PLATELET VOLUME 9.7 fl (9.6-12.3); MONO # 0.8 10*3/uL (0.1-1.0); PLATELET COUNT AUTOMATED 246 10*3/uL (130-400); RED BLOOD COUNT 3.71 10*6/uL (4.10-5.10); RED CELL DISTRI WIDTH 13.8 % (0-14.5); WHITE BLOOD COUNT 7.5 10*3/uL (4.8-10.8)
[2024-01-08 09:51] LABS: ACT PARTIAL THROMBO TIME 25.6 SECONDS (20.0-32.1)
[2024-01-08 09:54] LABS: TOTAL PROTEIN 6.8 gm/dL (6.0-8.0)
[2024-01-08 10:15] VITALS: BP 149/66
[2024-01-08] MEDS ORDERED: Acetaminophen/Hydrocodone 5 MG/325 MG TABLET PO ONE (11:00)
[2024-01-08] MEDS ORDERED: methylPREDNISolone sod succ 40 MG VIAL IV ONE (11:00)
[2024-01-08] MEDS ORDERED: Ondansetron Hydrochloride 4 MG/2 ML VIAL IV PRN (13:00)
[2024-01-08] MEDS ORDERED: ACETAMINOPHEN 325 MG TAB PO PRN (13:00)
[2024-01-08] MEDS ORDERED: Magnesium Hydroxide 30 ML UDC PO PRN (13:00)
[2024-01-08] MEDS ORDERED: Acetaminophen/Hydrocodone 5 MG/325 MG TABLET PO PRN (13:00)
[2024-01-08 14:28] VITALS: BP 176/79
[2024-01-08] MEDS ORDERED: TYLENOL325 M1 PO (14:41)
[2024-01-08] MEDS ORDERED: PROAIR RESPICL90 MCG INH (15:03)
[2024-01-08] MEDS ORDERED: DICLOFENAC SODIUM 100 GM TUBE T PRN (16:25)
[2024-01-08] MEDS ORDERED: Albuterol Sulfate 2.5 MG/3 ML VIAL NEB SCH (16:30)
[2024-01-08] MEDS ORDERED: BUDESONIDE 0.5 MG AMP NEB SCH (16:30)
[2024-01-08] MEDS ORDERED: GUAIFENESIN/DEXTROMETHORPHAN 10 ML UDC PO PRN (16:40)
[2024-01-08] MEDS ORDERED: MESALAMINE 400 MG TAB PO SCH (17:00)
[2024-01-08 17:16] VITALS: BP 176/79
[2024-01-08 17:43] LABS: BILIRUBIN Negative (Negative); BLOOD Negative (Negative); CLARITY Clear (Clear); COLOR Yellow (Yellow); GLUCOSE Trace (Negative); KETONE Trace (Negative); LEUKO ESTERASE Negative (Negative); NITRITE Negative (Negative); SPECIFIC GRAVITY 1.015 (1.001-1.030); UROBILINOGEN 0.2 E.U./dl (0.0-1.0)
[2024-01-08 21:30] VITALS: BP 158/75
[2024-01-08] MEDS ORDERED: busPIRone Hydrochloride 10 MG TAB PO SCH (22:00)
[2024-01-08] MEDS ORDERED: HEPARIN SODIUM 5,000 UNIT/ML VIAL SC SCH (22:00)
[2024-01-08] MEDS ORDERED: Metoprolol Tartrate 25 MG TAB PO SCH (22:00)
[2024-01-08] MEDS ORDERED: predniSONE 10 MG TAB PO SCH (22:00)
[2024-01-09 05:30] VITALS: BP 168/65
[2024-01-09 06:54] LABS: BASO % 0.2 % (0.0-1.0); HEMATOCRIT 37.5 % (37.0-47.0); LYMPH # 1.2 10*3/uL (1.3-4.4); LYMPH % 14.7 % (27.0-41.0); MEAN CELL VOLUME 97.9 fl (81.0-99.0); MEAN CORPUSCULAR HGB 29.5 pg (27.0-31.0); MEAN CORPUSCULAR HGB CONC 30.1 g/dl (33.0-37.0); MONO # 0.5 10*3/uL (0.1-1.0); MONO % 5.9 % (3.0-9.0); NEUT # 6.4 10*3/uL (2.3-7.9); NEUT % 78.7 % (47.0-73.0); PLATELET COUNT AUTOMATED 271 10*3/uL (130-400); RED BLOOD COUNT 3.83 10*6/uL (4.10-5.10); RED CELL DISTRI WIDTH 13.6 % (0-14.5); WHITE BLOOD COUNT 8.1 10*3/uL (4.8-10.8)
[2024-01-09 08:01] LABS: POTASSIUM 4.3 mmol/L (3.4-5.1); TOTAL PROTEIN 7.2 gm/dL (6.0-8.0)
[2024-01-09 08:09] VITALS: BP 161/81
[2024-01-09] MEDS ORDERED: methylPREDNISolone sod succ 40 MG VIAL IV SCH (10:00)
[2024-01-09] MEDS ORDERED: LORATADINE 10 MG TAB PO SCH (10:00)
[2024-01-09] MEDS ORDERED: Venlafaxine Hydrochloride 75 MG CAP PO SCH (10:00)
== END 2024-01-09 14:26 | DRG 91 ==
LOC: ED 08:29 → EDHOLD 12:11
PROVIDERS: Emergency Medicine; Student in an Organized Health Care Education/Training Program; ADMIT Internal Medicine; ATTEND Internal Medicine
DX: G24.3 Spasmodic torticollis (principal); N17.0 Acute kidney failure with tubular necrosis; F03.93 Unspecified dementia, unspecified severity, with mood disturbance; G24.9 Dystonia, unspecified; M35.3 Polymyalgia rheumatica; M50.322 Other cervical disc degeneration at C5-C6 level; M48.02 Spinal stenosis, cervical region; D64.9 Anemia, unspecified; F43.23 Adjustment disorder with mixed anxiety and depressed mood; N18.9 Chronic kidney disease, unspecified; R73.9 Hyperglycemia, unspecified; I12.9 Hypertensive chronic kidney disease with stage 1 through stage 4 chronic kidney disease, or unspecified chronic kidney disease; K21.9 Gastro-esophageal reflux disease without esophagitis; E78.5 Hyperlipidemia, unspecified; K08.409 Partial loss of teeth, unspecified cause, unspecified class; I25.2 Old myocardial infarction; Z80.6 Family history of leukemia; Z79.899 Other long term (current) drug therapy; Z79.01 Long term (current) use of anticoagulants; Z79.2 Long term (current) use of antibiotics; Z88.2 Allergy status to sulfonamides; Z88.8 Allergy status to other drugs, medicaments and biological substances; Z91.09 Other allergy status, other than to drugs and biological substances; Z87.440 Personal history of urinary (tract) infections; Z90.710 Acquired absence of both cervix and uterus

== ENCOUNTER 2025-05-07 04:04 | Emergency (ER) | payer MEDICARE, OTHER ==
[~2025-05-07] VITALS: Ht 165.1 cm; Wt 92.7 kg
[~2025-05-07 04:04] MED LIST changes: +AIRSUPRA 90-810.7 GM INH; +ALBUTEROL S5 MG/1 ML NEB; +BUSPIRONE HCL15 MG PO; +DOXYCYCLINE HY100 M3 PO; +MESALAMINE DR400 MG PO; +MUCUS RELIEF E600 MG PO; +OMNICEF300 MG PO; +OS-CAL 500-VIT1 EAC1 PO; +OXYGEN NAS; +PROAIR RESPICL90 MCG INH; +TRELEGY ELLIPT1 EAC1 INH; +TYLENOL325 M1 PO; +VENT7GM INH; +ZITHROMAX250 MG PO
[2025-05-07] MEDS ORDERED: Ondansetron Hydrochloride 4 MG TAB SL ONE (04:15)
[2025-05-07 04:23] LABS: BASO # 0.1 10*3/uL (0.0-0.1); BASO % 0.4 % (0.0-1.0); EOS # 0.1 10*3/uL (0.0-0.4); EOS % 0.8 % (1.0-4.0); MEAN CELL VOLUME 101.3 fl (81.0-99.0); MEAN CORPUSCULAR HGB 31.8 pg (27.0-31.0); MEAN PLATELET VOLUME 9.8 fl (9.6-12.3); MONO # 1.2 10*3/uL (0.1-1.0); MONO % 9.3 % (3.0-9.0); NEUT # 10.6 10*3/uL (2.3-7.9); NEUT % 79.8 % (47.0-73.0); NUCLEATED RED BLOOD CELL 0.0 % (0.0-0.0); NUCLEATED RED BLOOD CELL 0.0 10*3/uL (0.0-0.0); PLATELET COUNT AUTOMATED 244 10*3/uL (130-400); RED CELL DISTRI WIDTH 13.3 % (0-14.5)
[2025-05-07 04:46] LABS: BUN 20.0 mg/dl (9-23)
[2025-05-07 05:08] LABS: BILIRUBIN Negative (Negative); BLOOD Negative (Negative); CLARITY Clear (Clear); COLOR Yellow (Yellow); KETONE Negative (Negative); LEUKO ESTERASE 1+ (Negative); NITRITE Negative (Negative); PH 7.0 (4.5-8.0); SPECIFIC GRAVITY 1.020 (1.001-1.030); UROBILINOGEN 0.2 E.U./dl (0.0-1.0)
[2025-05-07 05:14] LABS: EPITHELIAL CELLS 41-50
[2025-05-07 05:15] LABS: BACTERIA 1+; WBC 16-20 wbc/hpf (0-5)
[2025-05-07] MEDS ORDERED: CEPHALEXIN 500 MG CAP PO ONE (06:05)
[2025-05-07] MEDS ORDERED: CEPHALEXIN500 M1 PO (06:17)
[2025-05-07] MEDS ORDERED: PREDNISONE20 M1 PO (06:17)
== END 2025-05-07 06:44 | disposition home or self-care (01) ==
LOC: ED 04:04
PROVIDERS: Internal Medicine
DX: M19.042 Primary osteoarthritis, left hand (principal); M19.032 Primary osteoarthritis, left wrist; D72.829 Elevated white blood cell count, unspecified; D53.9 Nutritional anemia, unspecified; M54.2 Cervicalgia; I12.9 Hypertensive chronic kidney disease with stage 1 through stage 4 chronic kidney disease, or unspecified chronic kidney disease; N18.32 Chronic kidney disease, stage 3b; F32.A Depression, unspecified; F41.9 Anxiety disorder, unspecified; K21.9 Gastro-esophageal reflux disease without esophagitis; E78.5 Hyperlipidemia, unspecified; Z87.891 Personal history of nicotine dependence; Z98.890 Other specified postprocedural states; Z90.710 Acquired absence of both cervix and uterus; Z88.2 Allergy status to sulfonamides; Z91.030 Bee allergy status

== ENCOUNTER 2025-05-18 03:02 | Inpatient (IN) | payer MEDICARE, OTHER ==
[~2025-05-18] VITALS: Ht 165.1 cm; Wt 85.3 kg
[~2025-05-18 03:02] MED LIST changes: +PREDNISONE20 M1 PO
[2025-05-18 03:10] VITALS: BP 126/80
[2025-05-18] MEDS ORDERED: Albuterol Sulf/Ipratropium 3 ML VIAL NEB ONE (03:15)
[2025-05-18 03:30] LABS: BASO # 0.0 10*3/uL (0.0-0.1); BASO % 0.2 % (0.0-1.0); EOS # 0.2 10*3/uL (0.0-0.4); EOS % 1.3 % (1.0-4.0); MEAN CELL VOLUME 104.3 fl (81.0-99.0); MEAN CORPUSCULAR HGB 31.0 pg (27.0-31.0); MEAN PLATELET VOLUME 9.5 fl (9.6-12.3); MONO # 1.2 10*3/uL (0.1-1.0); MONO % 7.0 % (3.0-9.0); NEUT # 14.2 10*3/uL (2.3-7.9); NEUT % 82.0 % (47.0-73.0); NUCLEATED RED BLOOD CELL 0.0 % (0.0-0.0); NUCLEATED RED BLOOD CELL 0.0 10*3/uL (0.0-0.0); PLATELET COUNT AUTOMATED 244 10*3/uL (130-400); RED CELL DISTRI WIDTH 13.8 % (0-14.5)
[2025-05-18 03:42] LABS: ACT PARTIAL THROMBO TIME 28.2 SECONDS (20.0-32.1)
[2025-05-18 03:51] LABS: BUN 26.0 mg/dl (9-23); SGPT/ALT 15.0 U/L (5-49)
[2025-05-18 06:30] VITALS: BP 135/46
[2025-05-18 06:51] LABS: BILIRUBIN Negative (Negative); BLOOD Negative (Negative); CLARITY Clear (Clear); COLOR Yellow (Yellow); KETONE Trace (Negative); NITRITE Negative (Negative); PH 5.0 (4.5-8.0); SPECIFIC GRAVITY 1.025 (1.001-1.030); UROBILINOGEN 0.2 E.U./dl (0.0-1.0)
[2025-05-18 06:52] LABS: LEUKO ESTERASE Negative (Negative)
[2025-05-18 07:00] LABS: BACTERIA TRACE; RBC 0-2 rbc/hpf (0-2); WBC 0-2 wbc/hpf (0-5)
[2025-05-18] MEDS ORDERED: Oscal,Oyster S500 MG PO (07:36)
[2025-05-18] MEDS ORDERED: AZITHROMYCIN 250 ML IV ONE (08:15)
[2025-05-18] MEDS ORDERED: Ondansetron Hydrochloride 4 MG/2 ML VIAL IV ONE (08:20)
[2025-05-18] MEDS ORDERED: BISACODYL 5 MG TAB PO PRN (08:50)
[2025-05-18] MEDS ORDERED: Ondansetron Hydrochloride 4 MG/2 ML VIAL IV PRN (08:50)
[2025-05-18] MEDS ORDERED: BISACODYL 10 MG SUPP R PRN (08:50)
[2025-05-18] MEDS ORDERED: TEMAZEPAM 15 MG CAP PO PRN (08:50)
[2025-05-18] MEDS ORDERED: Acetaminophen/Hydrocodone 5 MG/325 MG TABLET PO PRN (08:50)
[2025-05-18] MEDS ORDERED: ACETAMINOPHEN 325 MG TAB PO PRN (08:50)
[2025-05-18] MEDS ORDERED: ACETAMINOPHEN 650 MG SUPP R PRN (08:50)
[2025-05-18 09:51] VITALS: BP 144/46
[2025-05-18 13:15] VITALS: BP 145/53
[2025-05-18] MEDS ORDERED: SODIUM CHLORIDE 0.9% 1,000 ML IV SCH (13:30)
[2025-05-18] MEDS ORDERED: CALCIUM (OSCAL) 500MG PO SCH (18:00)
[2025-05-18 20:00] VITALS: BP 148/58
[2025-05-18] MEDS ORDERED: busPIRone Hydrochloride 15 MG TAB PO SCH (22:00)
[2025-05-19] VITALS: BP 140/60
[2025-05-19 06:18] LABS: BASO # 0.1 10*3/uL (0.0-0.1); BASO % 0.4 % (0.0-1.0); EOS # 0.2 10*3/uL (0.0-0.4); EOS % 1.3 % (1.0-4.0); MEAN CELL VOLUME 106.0 fl (81.0-99.0); MEAN CORPUSCULAR HGB 30.4 pg (27.0-31.0); MEAN PLATELET VOLUME 10.2 fl (9.6-12.3); MONO # 1.3 10*3/uL (0.1-1.0); MONO % 10.1 % (3.0-9.0); NEUT # 10.5 10*3/uL (2.3-7.9); NEUT % 79.4 % (47.0-73.0); NUCLEATED RED BLOOD CELL 0.0 % (0.0-0.0); NUCLEATED RED BLOOD CELL 0.0 10*3/uL (0.0-0.0); PLATELET COUNT AUTOMATED 207 10*3/uL (130-400); RED CELL DISTRI WIDTH 14.2 % (0-14.5)
[2025-05-19] MEDS ORDERED: Regadenoson 0.4 MG/5 ML SYR IV ONE (06:30)
[2025-05-19 06:31] LABS: BUN 19.0 mg/dl (9-23); LDL CHOLESTEROL 43.0 mg/dL (9-159); SGPT/ALT 11.0 U/L (5-49)
[2025-05-19 08:00] VITALS: BP 118/81
[2025-05-19] MEDS ORDERED: SODIUM CHLORIDE 0.9% IV SCH (08:00)
[2025-05-19] MEDS ORDERED: CEFTRIAXONE SODIUM IV SCH (08:00)
[2025-05-19] MEDS ORDERED: Venlafaxine Hydrochloride 75 MG CAP PO SCH (10:00)
[2025-05-19] MEDS ORDERED: AZITHROMYCIN 250 ML IV SCH (10:00)
[2025-05-19] MEDS ORDERED: ATORVASTATIN CALCIUM 10 MG TAB PO SCH (10:00)
[2025-05-19 12:00] VITALS: BP 98/60
[2025-05-19 16:00] VITALS: BP 123/47
[2025-05-19 20:00] VITALS: BP 118/50
[2025-05-20] VITALS: BP 127/61
[2025-05-20 06:32] LABS: BUN 22.0 mg/dl (9-23)
[2025-05-20 06:50] LABS: BASO # 0.1 10*3/uL (0.0-0.1); BASO % 0.3 % (0.0-1.0); EOS # 0.1 10*3/uL (0.0-0.4); EOS % 0.7 % (1.0-4.0); MEAN CORPUSCULAR HGB 31.3 pg (27.0-31.0); MEAN PLATELET VOLUME 10.2 fl (9.6-12.3); MONO # 1.4 10*3/uL (0.1-1.0); MONO % 8.2 % (3.0-9.0); NEUT # 14.7 10*3/uL (2.3-7.9); NEUT % 85.2 % (47.0-73.0); NUCLEATED RED BLOOD CELL 0.0 % (0.0-0.0); NUCLEATED RED BLOOD CELL 0.0 10*3/uL (0.0-0.0); PLATELET COUNT AUTOMATED 232 10*3/uL (130-400); RED CELL DISTRI WIDTH 14.1 % (0-14.5)
[2025-05-20 06:59] LABS: MEAN CELL VOLUME 104.7 fl (81.0-99.0)
[2025-05-20 08:00] VITALS: BP 133/48
[2025-05-20] MEDS ORDERED: FERROUS SULFATE 325 MG TAB PO SCH (10:00)
[2025-05-20 12:00] VITALS: BP 108/62
[2025-05-20 16:00] VITALS: BP 127/69
[2025-05-20] MEDS ORDERED: FUROSEMIDE 40 MG/4 ML VIAL IV ONE (16:30)
[2025-05-20 20:00] VITALS: BP 118/80
[2025-05-21] VITALS: BP 123/53
[2025-05-21 06:25] LABS: BASO # 0.1 10*3/uL (0.0-0.1); BASO % 0.5 % (0.0-1.0); EOS # 0.3 10*3/uL (0.0-0.4); EOS % 2.3 % (1.0-4.0); MEAN CELL VOLUME 103.5 fl (81.0-99.0); MEAN CORPUSCULAR HGB 30.6 pg (27.0-31.0); MEAN PLATELET VOLUME 10.5 fl (9.6-12.3); MONO # 1.0 10*3/uL (0.1-1.0); MONO % 8.9 % (3.0-9.0); NEUT # 8.9 10*3/uL (2.3-7.9); NEUT % 80.8 % (47.0-73.0); NUCLEATED RED BLOOD CELL 0.0 % (0.0-0.0); NUCLEATED RED BLOOD CELL 0.0 10*3/uL (0.0-0.0); PLATELET COUNT AUTOMATED 239 10*3/uL (130-400); RED CELL DISTRI WIDTH 13.6 % (0-14.5)
[2025-05-21 08:00] VITALS: BP 137/66
[2025-05-21 12:00] VITALS: BP 121/57
[2025-05-21] MEDS ORDERED: FUROSEMIDE 40 MG/4 ML VIAL IV ONE (15:40)
[2025-05-21 16:00] VITALS: BP 130/70
[2025-05-21 20:00] VITALS: BP 114/49
[2025-05-21] MEDS ORDERED: NYSTATIN 15 GM BOT T SCH (22:00)
[2025-05-22] VITALS: BP 139/56
[2025-05-22 06:38] LABS: BASO # 0.1 10*3/uL (0.0-0.1); BASO % 0.6 % (0.0-1.0); EOS # 0.2 10*3/uL (0.0-0.4); EOS % 2.2 % (1.0-4.0); MEAN CELL VOLUME 103.0 fl (81.0-99.0); MEAN CORPUSCULAR HGB 31.5 pg (27.0-31.0); MEAN PLATELET VOLUME 10.5 fl (9.6-12.3); MONO # 1.0 10*3/uL (0.1-1.0); MONO % 9.7 % (3.0-9.0); NEUT # 7.9 10*3/uL (2.3-7.9); NEUT % 79.1 % (47.0-73.0); NUCLEATED RED BLOOD CELL 0.0 % (0.0-0.0); NUCLEATED RED BLOOD CELL 0.0 10*3/uL (0.0-0.0); PLATELET COUNT AUTOMATED 250 10*3/uL (130-400); RED CELL DISTRI WIDTH 13.6 % (0-14.5)
[2025-05-22 06:39] LABS: BUN 19.0 mg/dl (9-23)
[2025-05-22 08:00] VITALS: BP 151/69
[2025-05-22] MEDS ORDERED: FUROSEMIDE 40 MG TAB PO SCH (11:15)
[2025-05-22] MEDS ORDERED: HEEL PROTECTOR DEVICE ONE (11:50)
[2025-05-22] MEDS ORDERED: FOAM BANDAGE HEEL T ONE (11:50)
[2025-05-22] MEDS ORDERED: CHAIR CUSHION DEVICE ONE (11:50)
[2025-05-22 12:00] VITALS: BP 123/58
[2025-05-22 16:00] VITALS: BP 133/62
[2025-05-22 20:00] VITALS: BP 118/60
[2025-05-23] VITALS: BP 150/65
[2025-05-23 08:00] VITALS: BP 104/76
[2025-05-23 12:00] VITALS: BP 110/76
[2025-05-23] MEDS ORDERED: FUROSEMIDE40 MG PO (15:44)
[2025-05-23] MEDS ORDERED: KLOR-CON 1010 ME1 PO (15:46)
[2025-05-23 16:00] VITALS: BP 131/55
== END 2025-05-23 18:56 | DRG 871 ==
LOC: ED 03:02 → 5E 08:24 → EDHOLD 08:24 → 5E 11:32 → 4E 05-21 13:48 → 5E 05-23 06:28
PROVIDERS: Emergency Medicine; Student in an Organized Health Care Education/Training Program; ADMIT Internal Medicine; ATTEND Internal Medicine
PROC: 4A02XM4 Measurement of Cardiac Total Activity, External Approach (ICD-10-PCS; principal; 2025-05-19)
PROC: 3E073KZ Introduction of Other Diagnostic Substance into Coronary Artery, Percutaneous Approach (ICD-10-PCS; 2025-05-19)
DX: A41.9 Sepsis, unspecified organism (principal); I50.31 Acute diastolic (congestive) heart failure; J15.69 Pneumonia due to other Gram-negative bacteria; J96.21 Acute and chronic respiratory failure with hypoxia; J44.1 Chronic obstructive pulmonary disease with (acute) exacerbation; J91.8 Pleural effusion in other conditions classified elsewhere; J44.0 Chronic obstructive pulmonary disease with (acute) lower respiratory infection; F03.93 Unspecified dementia, unspecified severity, with mood disturbance; I13.0 Hypertensive heart and chronic kidney disease with heart failure and stage 1 through stage 4 chronic kidney disease, or unspecified chronic kidney disease; J98.11 Atelectasis; R73.9 Hyperglycemia, unspecified; Z66 Do not resuscitate; Z20.822 Contact with and (suspected) exposure to COVID-19; F43.23 Adjustment disorder with mixed anxiety and depressed mood; I25.10 Atherosclerotic heart disease of native coronary artery without angina pectoris; K57.30 Diverticulosis of large intestine without perforation or abscess without bleeding; K21.9 Gastro-esophageal reflux disease without esophagitis; E78.5 Hyperlipidemia, unspecified; D53.9 Nutritional anemia, unspecified; N18.32 Chronic kidney disease, stage 3b; M19.032 Primary osteoarthritis, left wrist; M19.042 Primary osteoarthritis, left hand; E66.9 Obesity, unspecified; J43.2 Centrilobular emphysema; Z88.2 Allergy status to sulfonamides; Z88.8 Allergy status to other drugs, medicaments and biological substances; Z79.899 Other long term (current) drug therapy; Z79.01 Long term (current) use of anticoagulants; Z79.2 Long term (current) use of antibiotics; Z95.5 Presence of coronary angioplasty implant and graft; Z90.710 Acquired absence of both cervix and uterus; Z98.42 Cataract extraction status, left eye; Z98.41 Cataract extraction status, right eye; I25.2 Old myocardial infarction; Z87.891 Personal history of nicotine dependence; Z82.49 Family history of ischemic heart disease and other diseases of the circulatory system; Z80.6 Family history of leukemia; Z80.51 Family history of malignant neoplasm of kidney; Z68.31 Body mass index [BMI] 31.0-31.9, adult